=== PATIENT | male | born 1965 | race Asian ===

== ENCOUNTER 2017-11-20 09:46 | Emergency (ER) | payer SELFPAY ==
[~2017-11-20] VITALS: Ht 182.9 cm; Wt 123.4 kg
[2017-11-20 11:38] LABS: HEMATOCRIT 41.1 % (38.0-50.0); HEMOGLOBIN 13.7 G/DL (12.5-16.6); MCH 27.5 PG (29.0-34.0); MCHC 33.3 G/DL (30.0-36.0); MCV 82.4 FL (86-99); PLATELET COUNT 239 K/uL (156-360); RBC DIS.WIDTH-CV 12.3 % (11.8-14.6); RBC DIS.WIDTH-SD 37.1 % (39-53); RED BLOOD COUNT 4.99 M/uL (4.00-5.50); WHITE BLOOD COUNT 12.9 K/uL (4.1-10.2)
[2017-11-20 11:49] LABS: CHLORIDE 103 mEq/L (99-109); POTASSIUM 3.7 mEq/L (3.7-5.4); SODIUM 139 mEq/L (136-147)
[2017-11-20 11:51] LABS: GLUCOSE 115 mg/dL (70-99)
[2017-11-20 11:54] LABS: CREATININE 0.9 mg/dL (0.6-1.3); GFR ESTIMATE (CALCULATED) > 59 mL/min/ (58.99-99999)
[2017-11-20 11:55] LABS: UREA NITROGEN (BUN) 6 mg/dL (9-23)
[2017-11-20] MEDS ORDERED: NORCO 5/3251 TABLET PO (13:16)
[2017-11-20] MEDS ORDERED: COLACE100 MG PO (13:25)
[2017-11-20 13:38] VITALS: BP 172/115
== END 2017-11-20 13:41 | disposition home or self-care (01) ==
LOC: EME 09:46
PROVIDERS: Nurse Practitioner Family
DX: S30.0XXA Contusion of lower back and pelvis, initial encounter (principal); I10 Essential (primary) hypertension; E78.5 Hyperlipidemia, unspecified; F17.200 Nicotine dependence, unspecified, uncomplicated; W18.30XA Fall on same level, unspecified, initial encounter; Y99.0 Civilian activity done for income or pay
CPT/HCPCS: 74177; 80048; 85027; J3010; J7030